=== PATIENT | female | born 1995 | race American Indian/Alaskan Native ===

== ENCOUNTER 2018-07-16 04:42 | Emergency (ER) | payer MEDICAID ==
[2018-07-16] MEDS ORDERED: DUONEB *Not for PRN Use IH ONE (04:53)
--- NOTE | 2018-07-16 05:52 | XRay Report ---
PROCEDURE: XR CHEST ROUTINE 2V TECHNIQUE: PA and lateral views of the chest were submitted. HISTORY: cough and wheezing COMPARISONS: None FINDINGS: The heart size and mediastinum appear normal. The lungs are clear. Pleural fluid is not seen. The bon es and soft tissues appear normal. IMPRESSION: Normal chest.. This document is electronically signed by Edmundo Aguayo MD., July 16 2018 05:49:22 AM ET
--- NOTE | 2018-07-16 06:07 | Emergency Department Report ---
- General Chief Complaint: Adult Asthma Stated Complaint: REILLY Time Seen by Provider: 07/16/18 06:05 Source: patient Mode of arrival: Ambulatory Limitations: No Limitations - History of Present Illness Initial Comments: Pt is a 23 Y/O aaf with hx of asthma who presents for cough productive of yellow with nocturnal fever T: No fever noted in triage tonight t patient states post nasal drip causing nausea with 1 episode of vomiting symptoms are exacerbated with abnormal exposure symptoms are relieved by rest and albuterol inhaler patient is albuterol inhaler this time he cannot follow PCP in [place] Complaint: sore throat, rhinorrhea, nasal congestion, sinus pain Onset/Timin -: days(s) Severity: moderate Severity scale (0 -10): 5 Quality: sharp Consistency: constant Improves With: nothing Worsens With: activity, other (environmental exposure ) Context: sick contacts Associated Symptoms: fever, chills, rhinorrhea, nasal congestion, sore throat, cough, shortness of breath, nausea, vomiting Treatments Prior to Arrival: none - Related Data Previous Rx's Medication Instructions Recorded Last Taken Type ALBUTEROL Inhaler(NF) [VENTOLIN 2 puff IH Q4H PRN #1 inha 07/16/18 Unknown Rx Inhaler(NF)] ALBUTEROL NEB's [Proventil 0.083% 2.5 mg IH Q4H PRN #25 vial 07/16/18 Unknown Rx NEBS] Azithromycin [Zithromax Z-MELISSA] 250 mg PO DAILY #6 tablet 07/16/18 Unknown Rx Benzonatate [Tessalon Perles] 100 mg PO Q8HR PRN #30 capsule 07/16/18 Unknown Rx Ibuprofen 800 mg PO TID PRN #30 tablet 07/16/18 Unknown Rx Nebulizer Accessories [Sootheneb 1 each MC PRN PRN #1 each 07/16/18 Unknown Rx [id number] Adult Mask] Nebulizer [Aeroneb Go Nebulizer] 1 each MC PRN PRN #1 each 07/16/18 Unknown Rx predniSONE [Deltasone] 40 mg PO QDAY 5 Days #10 tab 07/16/18 Unknown Rx Allergies Allergy/AdvReac Type Severity Reaction Status Date / Time shrimp Allergy Anaphylaxis Verified 12/11/15 23:10 ED Review of Systems ROS: Stated complaint: REILLY Other details as noted in HPI Constitutional: chills, fever Eyes: denies: eye pain, eye discharge, vision change ENT: ear pain, throat pain, congestion Respiratory: cough, shortness of breath, wheezing Endocrine: no symptoms reported Gastrointestinal: nausea. denies: abdominal pain, vomiting, diarrhea Genitourinary: denies: urgency, dysuria, discharge Musculoskeletal: denies: back pain, joint swelling, arthralgia Skin: denies: rash, lesions Neurological: denies: headache, weakness, paresthesias Psychiatric: denies: anxiety, depression Hematological/Lymphatic: denies: easy bleeding, easy bruising ED Past Medical Hx - Past Medical History Previous Medical History?: Yes Hx Asthma: Yes - Surgical History Past Surgical History?: No - Social History Smoking Status: Never Smoker Substance Use Type: None - Medications Home Medications: Home Medications Medication Instructions Recorded Confirmed Last Taken Type ALBUTEROL Inhaler(NF) [VENTOLIN 2 puff IH Q4H PRN #1 inha 07/16/18 Unknown Rx Inhaler(NF)] ALBUTEROL NEB's [Proventil 0.083% 2.5 mg IH Q4H PRN #25 vial 07/16/18 Unknown Rx NEBS] Azithromycin [Zithromax Z-MELISSA] 250 mg PO DAILY #6 tablet 07/16/18 Unknown Rx Benzonatate [Tessalon Perles] 100 mg PO Q8HR PRN #30 capsule 07/16/18 Unknown Rx Ibuprofen 800 mg PO TID PRN #30 tablet 07/16/18 Unknown Rx Nebulizer Accessories [Sootheneb 1 each MC PRN PRN #1 each 07/16/18 Unknown Rx [id number] Adult Mask] Nebulizer [Aeroneb Go Nebulizer] 1 each MC PRN PRN #1 each 07/16/18 Unknown Rx predniSONE [Deltasone] 40 mg PO QDAY 5 Days #10 tab 07/16/18 Unknown Rx ED Physical Exam - General Limitations: No Limitations General appearance: alert, in no apparent distress - Head Head exam: Present: atraumatic, normocephalic - Eye Eye exam: Present: normal appearance, PERRL, EOMI Pupils: Present: normal accommodation - ENT ENT exam: Present: normal orophraynx, mucous membranes moist. Absent: TM's normal bilaterally, normal external ear exam - Expanded ENT Exam Expanded Ear exam: Present: normal external inspection Throat exam: Positive: tonsillar erythema, tonsillomegaly, other (uvula midline no exudate no lesions no swelling no stidor ). Negative: tonsillar exudate, R peritonsillar mass, L peritonsillar mass - Neck Neck exam: Present: normal inspection, full ROM. Absent: tenderness, lymphadenopathy, thyromegaly - Respiratory Respiratory exam: Present: normal lung sounds bilaterally, wheezes, chest wall tenderness (right lateral chest wall tenderness to deep palpation). Absent: respiratory distress, stridor - Cardiovascular Cardiovascular Exam: Present: regular rate, normal rhythm, normal heart sounds. Absent: systolic murmur, diastolic murmur, rubs, gallop - GI/Abdominal GI/Abdominal exam: Present: soft, normal bowel sounds. Absent: tenderness, guarding, rebound, bruit, hernia - Rectal Rectal exam: Present: deferred - Extremities Exam Extremities exam: Present: normal inspection, full ROM, normal capillary refill. Absent: tenderness - Back Exam Back exam: Present: normal inspection, full ROM. Absent: tenderness, CVA tenderness (R), CVA tenderness (L), muscle spasm, paraspinal tenderness, vertebral tenderness, rash noted - Neurological Exam Neurological exam: Present: alert, oriented X3, CN II-XII intact, normal gait, reflexes normal - Psychiatric Psychiatric exam: Present: normal affect, normal mood - Skin Skin exam: Present: warm, dry, intact, normal color. Absent: rash ED Medical Decision Making - Radiology Data Radiology results: report reviewed, image reviewed Ordering Physician: HOMA LIU MD Date of Service: 07/16/18 Procedure(s): XR chest routine 2V Accession Number(s): [id number] cc: ED MD ALEXA Fluoro Time In Minutes: PROCEDURE: XR CHEST ROUTINE 2V TECHNIQUE: PA and lateral views of the chest were submitted. HISTORY: cough and wheezing COMPARISONS: None FINDINGS: The heart size and mediastinum appear normal. The lungs are clear. Pleural fluid is not seen. The bones and soft tissues appear normal. IMPRESSION: Normal chest.. This document is electronically signed by Pricila Aguayo MD., July 16 2018 05:49:22 AM ET Transcribed By: RB Dictated By: PRICILA AGUAYO MD Electronically Authenticated By: PRICILA AGUAYO MD Signed Date/Time: 07/16/18 0552 DD/ 0 TD/TT: 07/16/18 0530 - Medical Decision Making cxr no infiltrates no opacities plan: tx for bronchitis, refill albuterol, prednisone, zpack , tessalon, ibuprofen, follow up with with pcp in 2-3 days pt will follow up with pcp at [facility] in 2-3 days return to ed if symptoms worsen. pt verbalized agreement and understanding of discharge instructions. Vital signs at this time: hr: 110 temp: 98.3 bp: 137/78 resp: 18 O2 sat: 98% room air, Critical care attestation.: If time is entered above; I have spent that time in minutes in the direct care of this critically ill patient, excluding procedure time. ED Disposition Clinical Impression: Bronchitis Upper respiratory infection Qualifiers: URI type: unspecified viral URI Qualified Code(s): J06.9 - Acute upper respiratory infection, unspecified Disposition: - TO HOME OR SELFCARE Is pt being admited?: No Does the pt Need Aspirin: No Condition: Stable Instructions: Chronic Bronchitis (ED), Upper Respiratory Infection (ED) Prescriptions: Nebulizer [Aeroneb Go Nebulizer] 1 each MC PRN PRN #1 each PRN Reason: as needed predniSONE [Deltasone] 40 mg PO QDAY 5 Days #10 tab Ibuprofen 800 mg PO TID PRN #30 tablet PRN Reason: pain ALBUTEROL NEB's [Proventil 0.083% NEBS] 2.5 mg IH Q4H PRN #25 vial PRN Reason: shortness of breath wheezing Nebulizer Accessories [Sootheneb [id number] Adult Mask] 1 each MC PRN PRN #1 each PRN Reason: as needed Benzonatate [Tessalon Perles] 100 mg PO Q8HR PRN #30 capsule PRN Reason: Cough ALBUTEROL Inhaler(NF) [VENTOLIN Inhaler(NF)] 2 puff IH Q4H PRN #1 inha PRN Reason: shortness of breath wheezing Azithromycin [Zithromax Z-MELISSA] 250 mg PO DAILY #6 tablet Referrals: [facility] [Outside] - 3-5 Days Forms: Work/School Release Form(ED) Time of Disposition: 06:30
== END 2018-07-16 06:42 | disposition home or self-care (01) ==
LOC: ED 04:42
DX: J40 Bronchitis, not specified as acute or chronic (principal); J06.9 Acute upper respiratory infection, unspecified; J45.909 Unspecified asthma, uncomplicated; Z79.899 Other long term (current) drug therapy; Z91.013 Allergy to seafood
CPT/HCPCS: 71046; 94640

== ENCOUNTER 2018-08-09 22:04 | Emergency (ER) | payer MEDICAID ==
[2018-08-09 22:20] VITALS: BP 139/63
--- NOTE | 2018-08-09 22:38 | Emergency Department Report ---
Blank Doc - Documentation Documentation: 23 y o female presents with fever,cough xbody aches, runny nose x 1 week ua,upt cxr
[2018-08-09 23:21] LABS: Bilirubin,Urine NEG (Negative); Blood,Urine MOD (Negative); Color,Urine Yellow (Yellow); Mucus,Urine FEW /HPF; Protein,Urine <15 mg/dL mg/dL (Negative); Urobilinogen,Urine < 2.0 mg/dL (<2.0)
[2018-08-09 23:24] LABS: HCG Qualitative,Urine Positive (Negative)
--- NOTE | 2018-08-10 01:00 | XRay Report ---
PROCEDURE: XR CHEST ROUTINE 2V TECHNIQUE: PA and lateral views of the chest were obtained. HISTORY: cough/fev COMPARISONS: 07/16/2018 FINDINGS: The heart size and vascularity appear normal. The lungs are clear. Pleural fluid is not seen. The bon es and soft tissues appear normal. IMPRESSION: Within normal limits.. This document is electronically signed by Edmundo Aguayo MD., August 10 2018 12:58:11 AM ET
[2018-08-10] MEDS ORDERED: DELTASONE PO STA (01:51)
[2018-08-10] MEDS ORDERED: PROVENTIL IH STA (02:01)
--- NOTE | 2018-08-10 02:56 | Emergency Department Report ---
<CONY SNELL. - Last Filed: 08/23/18 21:56> ED Asthma HPI - General Chief Complaint: Adult Asthma Stated Complaint: DIFFICULTY IN BREATHING, VOMITING, COUGH Time Seen by Provider: 08/09/18 22:35 - Related Data Previous Rx's Medication Instructions Recorded Last Taken Type ALBUTEROL Inhaler(NF) [VENTOLIN 2 puff IH Q4H PRN #1 inha 07/16/18 Unknown Rx Inhaler(NF)] ALBUTEROL NEB's [Proventil 0.083% 2.5 mg IH Q4H PRN #25 vial 07/16/18 Unknown Rx NEBS] Azithromycin [Zithromax Z-MELISSA] 250 mg PO DAILY #6 tablet 07/16/18 Unknown Rx Benzonatate [Tessalon Perles] 100 mg PO Q8HR PRN #30 capsule 07/16/18 Unknown Rx Ibuprofen 800 mg PO TID PRN #30 tablet 07/16/18 Unknown Rx Nebulizer Accessories [Sootheneb 1 each MC PRN PRN #1 each 07/16/18 Unknown Rx [id number] Adult Mask] Nebulizer [Aeroneb Go Nebulizer] 1 each MC PRN PRN #1 each 07/16/18 Unknown Rx predniSONE [Deltasone] 40 mg PO QDAY 5 Days #10 tab 07/16/18 Unknown Rx ALBUTEROL NEB's [Proventil 0.083% 2.5 mg IH TID PRN #30 neb 08/10/18 Unknown Rx NEBS] Nebulizer and Compressor [Procare 1 each MC DAILY #1 each 08/10/18 Unknown Rx Compressor Nebulizer] Allergies Allergy/AdvReac Type Severity Reaction Status Date / Time shrimp Allergy Anaphylaxis Verified 12/11/15 23:10 ED Past Medical Hx - Medications Home Medications: Home Medications Medication Instructions Recorded Confirmed Last Taken Type ALBUTEROL Inhaler(NF) [VENTOLIN 2 puff IH Q4H PRN #1 inha 07/16/18 Unknown Rx Inhaler(NF)] ALBUTEROL NEB's [Proventil 0.083% 2.5 mg IH Q4H PRN #25 vial 07/16/18 Unknown Rx NEBS] Azithromycin [Zithromax Z-MELISSA] 250 mg PO DAILY #6 tablet 07/16/18 Unknown Rx Benzonatate [Tessalon Perles] 100 mg PO Q8HR PRN #30 capsule 07/16/18 Unknown Rx Ibuprofen 800 mg PO TID PRN #30 tablet 07/16/18 Unknown Rx Nebulizer Accessories [Sootheneb 1 each MC PRN PRN #1 each 07/16/18 Unknown Rx [id number] Adult Mask] Nebulizer [Aeroneb Go Nebulizer] 1 each MC PRN PRN #1 each 07/16/18 Unknown Rx predniSONE [Deltasone] 40 mg PO QDAY 5 Days #10 tab 07/16/18 Unknown Rx ALBUTEROL NEB's [Proventil 0.083% 2.5 mg IH TID PRN #30 neb 08/10/18 Unknown Rx NEBS] Nebulizer and Compressor [Procare 1 each MC DAILY #1 each 08/10/18 Unknown Rx Compressor Nebulizer] ED Disposition Clinical Impression: Asthma Disposition: DC-01 TO HOME OR SELFCARE Condition: Stable Instructions: Asthma (ED), Reactive Airways Disease (ED) Prescriptions: Nebulizer and Compressor [Procare Compressor Nebulizer] 1 each MC DAILY #1 each ALBUTEROL NEB's [Proventil 0.083% NEBS] 2.5 mg IH TID PRN #30 neb PRN Reason: Wheezing Referrals: ELIZA MUÑOZ MD [Primary Care Provider] - 3-5 Days <PRISCILA LUNDBERG - Last Filed: 09/01/18 23:47> ED Asthma HPI - General Source: patient Mode of arrival: Ambulatory Limitations: No Limitations - History of Present Illness Initial Comments: 23-year-old -Fijian F[place]ian female presents to emergency department complaining of shortness of breath/asthma exacerbation last week, but symptoms are not resolved with a nonproductive cough as well some coryza Complaint: "asthma attack", wheezing -: Gradual, week(s) (1) Asthma History: childhood onset Severity: mild Context: none known Associated Symptoms: dry cough - Related Data Current Asthma Therapy: none ED Review of Systems ROS: Stated complaint: DIFFICULTY IN BREATHING, VOMITING, COUGH Other details as noted in HPI Constitutional: denies: chills, fever Eyes: denies: eye pain, eye discharge, vision change ENT: denies: ear pain, throat pain Respiratory: wheezing. denies: cough, shortness of breath Cardiovascular: denies: chest pain, palpitations Endocrine: no symptoms reported Gastrointestinal: denies: abdominal pain, nausea, diarrhea Genitourinary: denies: urgency, dysuria, discharge Musculoskeletal: denies: back pain, joint swelling, arthralgia Skin: denies: rash, lesions Neurological: denies: headache, weakness, paresthesias Psychiatric: denies: anxiety, depression Hematological/Lymphatic: denies: easy bleeding, easy bruising ED Past Medical Hx - Past Medical History Previous Medical History?: Yes Hx Asthma: Yes - Surgical History Past Surgical History?: No - Social History Smoking Status: Never Smoker Substance Use Type: None ED Physical Exam - General Limitations: No Limitations General appearance: alert, in no apparent distress - Head Head exam: Present: atraumatic, normocephalic - Eye Eye exam: Present: normal appearance, PERRL, EOMI - ENT ENT exam: Present: mucous membranes moist - Neck Neck exam: Present: normal inspection, full ROM - Respiratory Respiratory exam: Present: normal lung sounds bilaterally. Absent: respiratory distress, wheezes (good air movement. Breath sounds are coarse. No active wheezing), accessory muscle use, decreased breath sounds - Cardiovascular Cardiovascular Exam: Present: regular rate, normal rhythm. Absent: systolic murmur, diastolic murmur, rubs, gallop - GI/Abdominal GI/Abdominal exam: Present: soft, normal bowel sounds - Extremities Exam Extremities exam: Present: normal inspection - Back Exam Back exam: Present: normal inspection - Neurological Exam Neurological exam: Present: alert, oriented X3 - Psychiatric Psychiatric exam: Present: normal affect, normal mood - Skin Skin exam: Present: warm, dry, intact, normal color. Absent: rash ED Course Vital Signs 08/09/18 08/10/18 22:10 03:04 Temperature 99.0 F Pulse Rate 136 H 104 H Respiratory 20 17 Rate Blood Pressure 139/63 O2 Sat by Pulse 96 98 Oximetry ED Medical Decision Making - Medical Decision Making 20-year-old female status post asthma exacerbation taken at home bronchodilating treatment emergency department for her asthma flareup. Chest x-ray is normal. Plan is to cover her with with sterile Rolaids, bronchial dilators, and a histamine. Have her follow up with asthma specialist or primary care provider within 24-36 hours. She is comfortable at this point in time with no complications Critical care attestation.: If time is entered above; I have spent that time in minutes in the direct care of this critically ill patient, excluding procedure time. ED Disposition Is pt being admited?: No Does the pt Need Aspirin: No
== END 2018-08-10 03:04 | disposition home or self-care (01) ==
LOC: ED 22:04
DX: J45.909 Unspecified asthma, uncomplicated (principal); Z91.013 Allergy to seafood
CPT/HCPCS: 71046; 81001; 81025; 94640; 99284; J7512